=== PATIENT | female | born 1970 | race Two or more races ===

== ENCOUNTER 2022-04-11 08:09 | Outpatient (CLI) | payer OTHER ==
[~2022-04-11 08:09] MED LIST: MULTIVITAMINS1 EAC1 PO; NABUMETONE500 MG PO; PERCOCET 5/3251 TAB PO
== END 2022-04-11 08:49 | disposition home or self-care (01) ==
LOC: RX STUDY 08:09
PROVIDERS: ATTEND Internal Medicine Cardiovascular Disease
DX: R10.9 Unspecified abdominal pain (principal); K21.9 Gastro-esophageal reflux disease without esophagitis